=== PATIENT | male | born 1955 | race Caucasian/White ===

== ENCOUNTER 2022-11-11 11:09 | Inpatient (IN) ==
[2022-11-11 14:28] LABS: Basophils # 0.1 10*3/uL (0.0-0.2); Basophils % 0.4 % (0.0-0.8); Eosinophils # 0.1 10*3/uL (0.0-0.87); Eosinophils % 0.4 % (0.00-10.9); Hematocrit 45.1 VOL% (42.0-52.0); Hemoglobin 15.1 GM/DL (14.0-18.0); Immature Granulocytes % 0.4 %; Immature Granulocytes Absolute 0.06 #; Lymphocytes # 2.4 10*3/uL (1.4-4.0); Lymphocytes % 15.3 % (21.2-54.2); Mean Corpuscular HGB Conc 33.5 GM/DL (32-36); Mean Corpuscular Volume 91.5 FL (87-102); Mean Platelet Volume 10.9 FL (9.6-12.0); Monocytes # 1.7 10*3/uL (0.11-0.8); Monocytes % 10.6 % (1.7-12.7); Neutrophils % 72.9 % (38.7-73.9); Platelet Count 266 T/CUMM (130-400); Red Blood Count 4.93 MC/CUMM (3.8-5.5); Red Cell Distribution Width 13.1 % (9.3-17.3); White Blood Count 15.98 T/CUMM (4-12)
[2022-11-11 14:48] LABS: Albumin 3.9 G/DL (3.4-5.0); Bilirubin,Total 0.8 MG/DL (0.20-1.00); Calcium 9.4 MG/DL (8.5-10.1); Osmolality,Calculated 278.7 MOS/KG (273-304); Total Protein 8.1 G/DL (6.4-8.2)
[2022-11-11 15:11] LABS: Bilirubin,Urine Negative (Negative); Blood, Urine Negative (Negative); Glucose,Urine (UA) >=1000 mg/dL (Negative); Ketones,Urine Negative (Negative); Nitrite,Urine Negative (Negative); Protein,Urine 30 mg/dL (Negative); Urine Appearance Clear (Clear); Urine Color Yellow (Yellow); Urine pH 6.5 (4.5-8.0)
[2022-11-11 15:24] LABS: RBC,Urine 6 /HPF (0-4); Squamous Epithelial Cell,Urine Occasional /HPF (0-10)
[2022-11-11] MEDS ORDERED: SODIUM CHLORIDE 0.9% 1,000 ML IV STA (16:10)
[2022-11-11] MEDS ORDERED: cefTRIAXone 1,000 MG in SODIUM CHLORIDE 0.9% 100 ML IV STA (17:10)
[2022-11-11] MEDS ORDERED: ZALEPLON 5 MG CAPSULE PO PRN (19:50)
[2022-11-11] MEDS ORDERED: DOCUSATE SODIUM 100 MG CAPSULE PO PRN (19:50)
[2022-11-11] MEDS ORDERED: ONDANSETRON 4 MG/2 ML VIAL IV PRN (19:50)
[2022-11-11] MEDS ORDERED: GLUCAGON 1 MG VIAL IM PRN (19:52)
[2022-11-11] MEDS ORDERED: DEXTROSE 10% 250 ML BAG IV PRN (20:04)
[2022-11-11] MEDS: ENOXAPARIN 40 MG/0.4 ML SYRINGE SUBCUT SCH (21:09)
[2022-11-11] MEDS: INSULIN REGULAR 100 UNIT/ML SUBCUT SCH (22:40)
[2022-11-12 04:53] LABS: Basophils # 0.1 10*3/uL (0.0-0.2); Basophils % 0.4 % (0.0-0.8); Eosinophils # 0.1 10*3/uL (0.0-0.87); Eosinophils % 0.9 % (0.00-10.9); Hematocrit 40.6 VOL% (42.0-52.0); Hemoglobin 13.6 GM/DL (14.0-18.0); Immature Granulocytes % 0.4 %; Immature Granulocytes Absolute 0.05 #; Lymphocytes # 2.6 10*3/uL (1.4-4.0); Lymphocytes % 19.2 % (21.2-54.2); Mean Corpuscular HGB Conc 33.5 GM/DL (32-36); Mean Corpuscular Volume 92.3 FL (87-102); Mean Platelet Volume 10.9 FL (9.6-12.0); Monocytes # 1.2 10*3/uL (0.11-0.8); Monocytes % 8.9 % (1.7-12.7); Neutrophils % 70.2 % (38.7-73.9); Platelet Count 227 T/CUMM (130-400); Red Cell Distribution Width 12.9 % (9.3-17.3); White Blood Count 13.35 T/CUMM (4-12)
[2022-11-12] MEDS: ACETAMINOPHEN 325 MG TABLET PO PRN ×2 (05:05→16:30)
[2022-11-12 05:17] LABS: Calcium 8.8 MG/DL (8.5-10.1); Osmolality,Calculated 280.5 MOS/KG (273-304); Potassium 3.7 MMOL/L (3.5-5.1); Thyroid Stimulating Hormone 0.256 uIU/ml (0.358-3.74)
[2022-11-12] MEDS: LEVOFLOXACIN INJ 500 MG/100 ML PREMIX IV SCH (09:50)
[2022-11-12] MEDS: INSULIN REGULAR 100 UNIT/ML SUBCUT SCH ×4 (09:53→20:59)
[2022-11-12] MEDS ORDERED: ERGOCALCIFEROL 50,000 UNIT CAPSULE PO ONE (13:00)
[2022-11-12] MEDS: POLYETHYLENE GLYCOL POWDER 17 GM PACK PO SCH (20:56)
[2022-11-12] MEDS: ENOXAPARIN 40 MG/0.4 ML SYRINGE SUBCUT SCH (20:58)
[2022-11-13 06:04] LABS: Basophils # 0.1 10*3/uL (0.0-0.2); Basophils % 0.5 % (0.0-0.8); Eosinophils # 0.1 10*3/uL (0.0-0.87); Eosinophils % 1.3 % (0.00-10.9); Hematocrit 40.7 VOL% (42.0-52.0); Hemoglobin 13.4 GM/DL (14.0-18.0); Immature Granulocytes % 0.4 %; Immature Granulocytes Absolute 0.05 #; Lymphocytes % 18.3 % (21.2-54.2); Mean Corpuscular HGB Conc 32.9 GM/DL (32-36); Mean Corpuscular Volume 92.1 FL (87-102); Mean Platelet Volume 11.5 FL (9.6-12.0); Monocytes % 9.3 % (1.7-12.7); Neutrophils % 70.2 % (38.7-73.9); Platelet Count 236 T/CUMM (130-400); Red Blood Count 4.42 MC/CUMM (3.8-5.5); Red Cell Distribution Width 12.8 % (9.3-17.3); White Blood Count 11.17 T/CUMM (4-12)
[2022-11-13 06:05] LABS: Calcium 8.9 MG/DL (8.5-10.1); Potassium 3.4 MMOL/L (3.5-5.1)
[2022-11-13 06:17] LABS: Free T4 (Free Thyroxine) 1.08 NG/DL (0.76-1.46)
[2022-11-13] MEDS: LEVOFLOXACIN INJ 500 MG/100 ML PREMIX IV SCH (08:16)
[2022-11-13] MEDS: POLYETHYLENE GLYCOL POWDER 17 GM PACK PO SCH (08:17)
[2022-11-13] MEDS: INSULIN REGULAR 100 UNIT/ML SUBCUT SCH ×4 (08:17→20:04)
[2022-11-13] MEDS ORDERED: POTASSIUM CHLORIDE 20 MEQ TABLET PO ONE (10:52)
[2022-11-13] MEDS ORDERED: ERGOCALCIFEROL 50,000 UNIT CAPSULE PO ONE (10:54)
[2022-11-13] MEDS ORDERED: POLYETHYLENE GLYCOL POWDER 255 GM BOTTLE PO ONE (12:38)
[2022-11-13] MEDS: metFORMIN 500 MG TABLET PO SCH (16:29)
[2022-11-13] MEDS: ENOXAPARIN 40 MG/0.4 ML SYRINGE SUBCUT SCH (20:04)
[2022-11-14 05:52] LABS: Basophils # 0.1 10*3/uL (0.0-0.2); Basophils % 0.9 % (0.0-0.8); Eosinophils # 0.3 10*3/uL (0.0-0.87); Eosinophils % 4.8 % (0.00-10.9); Hematocrit 39.3 VOL% (42.0-52.0); Hemoglobin 13.3 GM/DL (14.0-18.0); Immature Granulocytes % 0.5 %; Immature Granulocytes Absolute 0.03 #; Lymphocytes # 1.9 10*3/uL (1.4-4.0); Mean Corpuscular HGB Conc 33.8 GM/DL (32-36); Mean Corpuscular Volume 91.6 FL (87-102); Mean Platelet Volume 11.2 FL (9.6-12.0); Monocytes # 0.7 10*3/uL (0.11-0.8); Monocytes % 10.7 % (1.7-12.7); Neutrophils % 54.1 % (38.7-73.9); Platelet Count 263 T/CUMM (130-400); Red Blood Count 4.29 MC/CUMM (3.8-5.5); Red Cell Distribution Width 12.8 % (9.3-17.3); White Blood Count 6.62 T/CUMM (4-12)
[2022-11-14 06:02] LABS: Calcium 8.9 MG/DL (8.5-10.1); Osmolality,Calculated 281.7 MOS/KG (273-304); Potassium 3.8 MMOL/L (3.5-5.1)
[2022-11-14 06:12] LABS: Folate 14.83 NG/ML (5.38-24.0); Vitamin B12 346 PG/ML (211-911)
[2022-11-14 06:14] LABS: % Iron Saturation 25.2 % (18-50)
[2022-11-14 06:56] LABS: Sedimentation Rate-Westergren 85 MM/HR (0-20)
[2022-11-14] MEDS ORDERED: LINACLOTIDE 145 MCG CAPSULE PO SCH (07:30)
[2022-11-14] MEDS: INSULIN REGULAR 100 UNIT/ML SUBCUT SCH ×4 (08:30→21:27)
[2022-11-14] MEDS: metFORMIN 500 MG TABLET PO SCH ×2 (08:30→17:05)
[2022-11-14] MEDS: CHOLECALCIFEROL 1,000 UNIT TABLET PO SCH (08:30)
[2022-11-14] MEDS: POLYETHYLENE GLYCOL POWDER 17 GM PACK PO SCH (08:31)
[2022-11-14] MEDS: LEVOFLOXACIN INJ 500 MG/100 ML PREMIX IV SCH (08:40)
[2022-11-14] MEDS ORDERED: CYANOCOBALAMIN 500 MCG TABLET PO ONE (10:36)
[2022-11-14] MEDS ORDERED: ERGOCALCIFEROL 50,000 UNIT CAPSULE PO ONE (10:38)
[2022-11-14] MEDS: MULTIVITAMIN (CENTRUM) TABLET PO SCH (12:32)
[2022-11-14] MEDS: POLYCARBOPHIL 625 MG TABLET PO SCH (21:27)
[2022-11-14] MEDS: ENOXAPARIN 40 MG/0.4 ML SYRINGE SUBCUT SCH (21:27)
[2022-11-15 05:40] LABS: Basophils # 0.1 10*3/uL (0.0-0.2); Basophils % 0.9 % (0.0-0.8); Eosinophils # 0.3 10*3/uL (0.0-0.87); Eosinophils % 4.3 % (0.00-10.9); Hematocrit 39.9 VOL% (42.0-52.0); Hemoglobin 13.4 GM/DL (14.0-18.0); Immature Granulocytes % 0.4 %; Immature Granulocytes Absolute 0.03 #; Lymphocytes % 25.5 % (21.2-54.2); Mean Corpuscular HGB Conc 33.6 GM/DL (32-36); Mean Corpuscular Volume 92.4 FL (87-102); Mean Platelet Volume 10.8 FL (9.6-12.0); Monocytes # 0.7 10*3/uL (0.11-0.8); Monocytes % 9.5 % (1.7-12.7); Neutrophils % 59.4 % (38.7-73.9); Platelet Count 294 T/CUMM (130-400); Red Blood Count 4.32 MC/CUMM (3.8-5.5); Red Cell Distribution Width 12.7 % (9.3-17.3); White Blood Count 7.75 T/CUMM (4-12)
[2022-11-15 06:10] LABS: Calcium 9.4 MG/DL (8.5-10.1); Osmolality,Calculated 281.5 MOS/KG (273-304); Potassium 3.7 MMOL/L (3.5-5.1)
[2022-11-15] MEDS: POLYETHYLENE GLYCOL POWDER 17 GM PACK PO SCH ×2 (08:39→22:03)
[2022-11-15] MEDS: INSULIN REGULAR 100 UNIT/ML SUBCUT SCH ×4 (08:39→22:03)
[2022-11-15] MEDS: MULTIVITAMIN (CENTRUM) TABLET PO SCH (08:40)
[2022-11-15] MEDS: POLYCARBOPHIL 625 MG TABLET PO SCH ×2 (08:40→22:02)
[2022-11-15] MEDS: CHOLECALCIFEROL 1,000 UNIT TABLET PO SCH (08:41)
[2022-11-15] MEDS: DOCUSATE SODIUM 100 MG CAPSULE PO SCH ×2 (08:41→22:02)
[2022-11-15] MEDS: metFORMIN 500 MG TABLET PO SCH ×2 (08:41→16:34)
[2022-11-15] MEDS: CYANOCOBALAMIN 500 MCG TABLET PO SCH (08:41)
[2022-11-15] MEDS: LEVOFLOXACIN INJ 500 MG/100 ML PREMIX IV SCH (08:43)
[2022-11-15 10:43] LABS: Hemoglobin A1 (Alkaline) 97.4 % (96.5-98.5); Hemoglobin A2 (Alkaline) 2.6 % (1.5-3.5)
[2022-11-15] MEDS: ENOXAPARIN 40 MG/0.4 ML SYRINGE SUBCUT SCH (22:02)
[2022-11-16 04:45] LABS: Basophils # 0.1 10*3/uL (0.0-0.2); Basophils % 0.9 % (0.0-0.8); Eosinophils # 0.2 10*3/uL (0.0-0.87); Eosinophils % 3.4 % (0.00-10.9); Hematocrit 41.8 VOL% (42.0-52.0); Hemoglobin 13.8 GM/DL (14.0-18.0); Immature Granulocytes % 0.7 %; Immature Granulocytes Absolute 0.05 #; Lymphocytes # 1.9 10*3/uL (1.4-4.0); Lymphocytes % 26.8 % (21.2-54.2); Mean Corpuscular Volume 92.7 FL (87-102); Mean Platelet Volume 10.5 FL (9.6-12.0); Monocytes # 0.8 10*3/uL (0.11-0.8); Monocytes % 11.1 % (1.7-12.7); Neutrophils % 57.1 % (38.7-73.9); Platelet Count 313 T/CUMM (130-400); Red Blood Count 4.51 MC/CUMM (3.8-5.5); Red Cell Distribution Width 12.7 % (9.3-17.3); White Blood Count 7.02 T/CUMM (4-12)
[2022-11-16 05:00] LABS: Calcium 9.5 MG/DL (8.5-10.1); Osmolality,Calculated 279.8 MOS/KG (273-304); Potassium 3.9 MMOL/L (3.5-5.1)
[2022-11-16] MEDS ORDERED: LEVOFLOXACIN 750 MG TABLET PO SCH (09:00)
[2022-11-16] MEDS: metFORMIN 500 MG TABLET PO SCH (09:38)
[2022-11-16] MEDS: INSULIN REGULAR 100 UNIT/ML SUBCUT SCH ×2 (09:38→11:57)
[2022-11-16] MEDS: POLYETHYLENE GLYCOL POWDER 17 GM PACK PO SCH (09:39)
[2022-11-16] MEDS: CYANOCOBALAMIN 500 MCG TABLET PO SCH (09:39)
[2022-11-16] MEDS: POLYCARBOPHIL 625 MG TABLET PO SCH (09:39)
[2022-11-16] MEDS: MULTIVITAMIN (CENTRUM) TABLET PO SCH (09:39)
[2022-11-16] MEDS: DOCUSATE SODIUM 100 MG CAPSULE PO SCH (09:39)
[2022-11-16] MEDS: CHOLECALCIFEROL 1,000 UNIT TABLET PO SCH (09:39)
[2022-11-16 11:50] VITALS: BP 148/88
== END 2022-11-16 14:22 | disposition home health service (06) | DRG 866 ==
LOC: N.ED 11:09 → N.EDINP 11:09 → N.2E 21:33
PROVIDERS: ADMIT Hospitalist; ATTEND Hospitalist